=== PATIENT | female | born 1985 | race Hispanic/Latino ===

== ENCOUNTER 2022-10-17 12:46 | Emergency (ER) | payer OTHER ==
[~2022-10-17] VITALS: Ht 160 cm; Wt 52.2 kg
[2022-10-17 12:54] VITALS: BP 126/78
[2022-10-17] MEDS ORDERED: ERYTHROMYCIN BASE 0.5% OPHTH OINT 1 GM TUBE ONE (15:23)
[2022-10-17] MEDS ORDERED: KETOROLAC 30MG VIAL (30MG/ML) ONE (15:23)
[2022-10-17] MEDS ORDERED: ERYTHROMYCIN BASE 0.5% OPHTH OINT 1 GM TUBE OU SCH (15:30)
[2022-10-17] MEDS ORDERED: KETOROLAC 30MG VIAL (30MG/ML) IM ONE (15:30)
[2022-10-17] MEDS ORDERED: ERYT1OIN7 OP (16:05)
== END 2022-10-17 16:14 | disposition home or self-care (01) ==
LOC: EDH 12:46
DX: S05.02XA Injury of conjunctiva and corneal abrasion without foreign body, left eye, initial encounter (principal); Z79.1 Long term (current) use of non-steroidal anti-inflammatories (NSAID); X58.XXXA Exposure to other specified factors, initial encounter; Y93.89 Activity, other specified; Y92.89 Other specified places as the place of occurrence of the external cause; Y99.8 Other external cause status
CPT/HCPCS: 99283; 96372; J1885